=== PATIENT | female | born 1970 | race Caucasian/White ===

== ENCOUNTER 2025-06-06 23:08 | Emergency (ER) | payer MEDICAID ==
[~2025-06-06] VITALS: Ht 175.3 cm; Wt 101.4 kg
--- NOTE | 2025-06-07 01:55 | Physician Documentation ---
History of Present Illness General Chief Complaint: Nose bleed Stated Complaint: BLEEDING FROM NOSE/EARS Time Seen by MD: 01:45 History of Present Illness Initial Comments Patient is a 54-year-old female who states she has had several brain tumors in the past and she had an episode of bleeding from her left naris last night. The patient states today she was cleaning her ears and she noticed blood on both Q- tips. Patient became concerned that this may be related to her previous history of brain tumors. Patient denies any fevers chills nausea or vomiting. Patient states several weeks ago she has a right-sided ear infection. Medication Reconciliation Allergies: Uncoded Allergies: PENICILLIN (Allergy, Intermediate, rash, 06/06/25) Past Medical History Past Medical History: Brain Cancer Review of Systems All Other Systems at this time: Reviewed and Negative Physical Exam Physical Exam Vital Signs: Temperature: 98.5, Heart Rate: 90, Respiratory Rate: 16, BP: 120/82, Pulse Oximetry: 99, Weight: 101.360 Oxygen Flow Rate: 0 Physical Exam VITALS: Reviewed and as above. GENERAL: Alert, no apparent distress. HEENT: Normocephalic, atraumatic, PERRL, EOMI, dry mucosa, no erythema the patient has excoriation to bilateral external canals the right external canal has some blood pooled in the external canal the TMs are clear bilaterally the right canal is slightly swollen. BACK: No CVA tenderness, or swelling MUSCULOSKELETAL: No deformities, no edema SKIN: Warm and dry, no rash NEURO: Oriented x4, No motor or sensory deficit PSYCH: Normal mood and affect, no agitation Progress Results/Orders Results/Orders Orders - NAHUN MORRISON MD Neomy/Polymyx B/Hc Otic Susp. (Cortispor (06/07/25 02:10) Vital Signs 06/06/25 23:37 Temp 98.5 Pulse 90 Resp 16 B/P (MAP) 120/82 Pulse Ox 99 O2 Flow Rate 0 Medical Decision Making Findings The patient appears to have caused bleeding to both of her external canal secondary to using Q-tips she does appear to have some swelling in the external canal on the right side and she will be treated with an antibiotic drop to keep her from developing cellulitis or an external otitis. Otherwise the patient has a normal exam the patient was reassured that I do not feel that this is in any way related to her prior history of brain tumors the patient will be discharged with corticosteroid urine otic suspension drops. And be advised to take them 3 times a day for the next five days. The patient's pulse oximetry was interpreted as normal and adequate the patient is nontoxic and well-appearing. Departure Time of Disposition: 02:06 Disposition: HOME / SELF CARE / HOMELESS Impression: Primary Impression: External otitis Qualified Codes: H60.501 - Unspecified acute noninfective otitis externa, right ear Discharge Instructions: Otitis Externa, [id number] Additional Instructions: Use four drops in the right ear 3 times a day for the next five days. Follow up with your healthcare provider. Return for significant worsening of your symptoms. Referrals: NO PRIMARY CARE PROVIDER (PCP) NAHUN MORRISON MD Jun 07, 2025 01:55
[2025-06-07] MEDS ORDERED: neomy sulf/polymyx B sulf/HC 10ml otic suspension RIGHT EAR ONE (02:10)
[2025-06-07 02:20] VITALS: BP 118/80; PULSE 89; RESP 18; TEMP 98.6; O2SAT 99
== END 2025-06-07 02:20 | disposition home or self-care (01) ==
LOC: ER 23:10
DX: H60.91 Unspecified otitis externa, right ear (principal); Z85.841 Personal history of malignant neoplasm of brain
CPT/HCPCS: 99282